=== PATIENT | male | born 1945 | race Caucasian/White ===

== ENCOUNTER → 2018-04-08 | Outpatient (CLI) | payer MEDICARE ==
[~2018-04-08] MED LIST: ASPI-555 PO; ESOM40CA PO; LISI-613 PO; OMEG1CAP6 PO; SIMV40TA5 PO
== END | disposition home or self-care (01) ==
LOC: SHCH 07:51
PROVIDERS: ATTEND Internal Medicine Cardiovascular Disease
DX: I71.4 Abdominal aortic aneurysm, without rupture (principal)
CPT/HCPCS: 93978

== ENCOUNTER → 2019-05-13 | Outpatient (CLI) | payer MEDICARE | END | disposition home or self-care (01) | LOC: SHCH 07:43 | PROVIDERS: ATTEND Internal Medicine Cardiovascular Disease | DX: I71.4 Abdominal aortic aneurysm, without rupture (principal) | CPT/HCPCS: 93978 ==

== ENCOUNTER → 2019-06-04 | Outpatient (CLI) | payer MEDICARE ==
[~2019-06-04] MED LIST changes: +IOHEXOL-350 50ML VIAL IV ONE
== END | disposition home or self-care (01) ==
LOC: RAH 09:38
PROVIDERS: ATTEND Internal Medicine Cardiovascular Disease
DX: K76.0 Fatty (change of) liver, not elsewhere classified (principal); N40.0 Benign prostatic hyperplasia without lower urinary tract symptoms
CPT/HCPCS: 75635; Q9967

== ENCOUNTER → 2020-05-31 | Outpatient (CLI) | payer MEDICARE ==
[~2020-05-31] MED LIST changes: -ASPI-555 PO; +ASPI-556 PO; -IOHEXOL-350 50ML VIAL IV ONE; +SIMV-46 PO; -SIMV40TA5 PO
== END | disposition home or self-care (01) ==
LOC: SHCH 07:43
PROVIDERS: ATTEND Internal Medicine Cardiovascular Disease
DX: I71.4 Abdominal aortic aneurysm, without rupture (principal)
CPT/HCPCS: 93978

== ENCOUNTER → 2020-05-31 | Outpatient (CLI) | payer OTHER | END | disposition home or self-care (01) | LOC: OIH 07:44 | PROVIDERS: ATTEND Internal Medicine Cardiovascular Disease | DX: Z13.6 Encounter for screening for cardiovascular disorders (principal) | CPT/HCPCS: 75571 ==

== ENCOUNTER → 2020-08-07 | Outpatient (CLI) | payer MEDICARE ==
[~2020-08-07] MED LIST changes: +REGADENOSON 0.4 MG/5 ML PF SYG IVP SCH
== END | disposition home or self-care (01) ==
LOC: SHCH 08:09
PROVIDERS: ATTEND Internal Medicine Cardiovascular Disease
DX: I35.8 Other nonrheumatic aortic valve disorders (principal); I25.10 Atherosclerotic heart disease of native coronary artery without angina pectoris; I10 Essential (primary) hypertension
CPT/HCPCS: 78452; 93017; 93306; 93356; 96374; A9500 ×2; J2785

== ENCOUNTER → 2022-01-23 | Outpatient (CLI) | payer MEDICARE ==
[~2022-01-23] MED LIST changes: -LISI-613 PO; +LISI20TA24 PO; -REGADENOSON 0.4 MG/5 ML PF SYG IVP SCH
== END | disposition home or self-care (01) ==
LOC: RAH 10:03
PROVIDERS: ATTEND Internal Medicine Cardiovascular Disease
DX: N40.0 Benign prostatic hyperplasia without lower urinary tract symptoms (principal); I71.4 Abdominal aortic aneurysm, without rupture; N26.1 Atrophy of kidney (terminal)
CPT/HCPCS: 74176

== ENCOUNTER → 2023-11-05 | Outpatient (CLI) | payer MEDICARE | END | disposition home or self-care (01) | LOC: SHCH 08:15 | PROVIDERS: ATTEND Internal Medicine Cardiovascular Disease | DX: I71.40 Abdominal aortic aneurysm, without rupture, unspecified (principal) | CPT/HCPCS: 93978 ==

== ENCOUNTER → 2024-09-07 | Outpatient (CLI) | payer MEDICARE ==
--- NOTE | 2024-09-07 14:46 | HMCIMG ---
CHEST 2VWS HISTORY: Cough COMPARISON: 04/25/2017 FINDINGS: Frontal and lateral projections of the chest were obtained. There is no acute pulmonary infiltrates or failure. The heart is not enlarged. No evidence of aortic calcification is seen. Degenerative changes are seen of the thoracolumbar spine. IMPRESSION: 1. No acute pulmonary infiltrates.
== END | disposition home or self-care (01) ==
LOC: OIH 12:19
PROVIDERS: ATTEND Family Medicine
DX: R05.9 Cough, unspecified (principal); M47.815 Spondylosis without myelopathy or radiculopathy, thoracolumbar region; F17.210 Nicotine dependence, cigarettes, uncomplicated
CPT/HCPCS: 71046

== ENCOUNTER → 2024-10-21 | Outpatient (CLI) | payer MEDICARE ==
[2024-10-21 12:14] LABS: POTASSIUM 4.6 mmol/L (3.5-5.1)
== END | disposition home or self-care (01) ==
LOC: LAB 08:32
PROVIDERS: ATTEND Nurse Practitioner Acute Care
DX: I71.40 Abdominal aortic aneurysm, without rupture, unspecified (principal)
CPT/HCPCS: 36415; 80048

== ENCOUNTER → 2024-10-25 | Outpatient (CLI) | payer MEDICARE ==
[~2024-10-25] MED LIST changes: +IOHEXOL 350 MG/ML 100ML INFUS..BTL IV ONE
--- NOTE | 2024-10-25 11:13 | HMCIMG ---
CT ANGIO ABD/PEL PRE AAA 3MM HISTORY: Aortic aneurysm COMPARISON: 01/23/2022 TECHNIQUE: CT angiography of the abdomen and pelvis was obtained using angiographic technique with maximum intensity projection reconstruction images. Patient was given 100 cc of Omnipaque through intravenous route. Oral contrast was not given. FINDINGS: No pleural effusion is seen bilaterally. There are mild interstitial fibrosis. There is no evidence of parenchymal disease or pulmonary nodule of the visualized lower lungs. Degenerative changes of the thoracolumbar spine are present. The heart is not enlarged. There is stable left adrenal adenoma measuring 17 mm. The liver, spleen, right adrenal gland and pancreas are unremarkable. There is no evidence of hydronephrosis bilaterally. No evidence of renal stone is seen. Fecal material is seen in the colon. There are normal size retroperitoneal and mesenteric lymph nodes. There is right renal atrophy. No ascites is seen. Atherosclerotic changes are present. Postop changes are seen of the lumbosacral spine causing artifacts limiting evaluation. There is diverticulosis. There is diffuse atherosclerotic disease. There is infrarenal abdominal aortic aneurysm measuring 3.5 x 3.2 cm proximally and 6 x 4.6 cm distally unchanged. Right common iliac artery measures 18 mm and left common iliac artery measures 19 mm. Aortobilateral iliac stent graft is seen without leakage. Minimal narrowing of the celiac artery and superior mesenteric arteries are noted at the origins. The celiac, superior mesenteric and bilateral renal arteries are grossly patent. The visualized portion of the iliac and femoral arterial systems are also grossly patent. Pelvic sidewalls are symmetric bilaterally. Bladder is poorly distended. Prostate gland is enlarged measuring 5.6 x 4.6 cm. IMPRESSION: 1. Abdominal aortic aneurysm repair changes with aortobilateral iliac stent placement. No leakage is seen. Enlarged prostate. Diverticulosis. No ascites. Extensive atherosclerosis with extensive vascular calcifications. CT was performed with one or more following dose reduction techniques: automated exposure control, adjustment of the mA and kv according to patient's size, or use of a iterative reconstruction technique.
== END | disposition home or self-care (01) ==
LOC: RAH 09:37
PROVIDERS: ATTEND Internal Medicine Cardiovascular Disease
DX: I71.43 Infrarenal abdominal aortic aneurysm, without rupture (principal); I71.40 Abdominal aortic aneurysm, without rupture, unspecified; I25.10 Atherosclerotic heart disease of native coronary artery without angina pectoris; K57.90 Diverticulosis of intestine, part unspecified, without perforation or abscess without bleeding; N26.1 Atrophy of kidney (terminal); I38 Endocarditis, valve unspecified; I70.0 Atherosclerosis of aorta; D35.02 Benign neoplasm of left adrenal gland; N40.0 Benign prostatic hyperplasia without lower urinary tract symptoms; M47.815 Spondylosis without myelopathy or radiculopathy, thoracolumbar region
CPT/HCPCS: 74174; Q9967

== ENCOUNTER → 2024-11-24 | Outpatient (CLI) | payer MEDICARE ==
[~2024-11-24] MED LIST changes: -IOHEXOL 350 MG/ML 100ML INFUS..BTL IV ONE
--- NOTE | 2024-11-26 09:30 | HMCSR ---
APPROVED REPORT EXAM: Two-dimensional and M-mode echocardiogram with Doppler and color Doppler. INDICATION ICD: I10 Essential (primary) Hypertension 2D Dimensions RVDd3.9 cmLVEF(%)55.6 (>50%)LVED Vol(simp.)152.0 mL IVSd1.2 (0.7-1.1cm)FS(%)29 %LVES Vol(simp.)71.0 mL LVDd5.0 (3.8-5.6cm)Ao Root(2D)3.7 (2.0-3.7cm)LVEF(%, simp.)53 % PWd1.2 (0.7-1.1cm)LVOT diam2.2 (1.8-2.4cm)LA ESV INDEX (BP)36.00 mL/m2 LVDs3.5 (2.5-4.0cm)IVC diam2.0 cm Aortic Valve AoV Vmax1.7 m/Barbara Peak GR11.8 mmHgLVOT Vmax1.0 m/s AoV VTI0.4 mAo Mean GR5.9 mmHgLVOT VTI0.23 m KAYLA (VMAX)2.3 cm2AVA (VTI) 2.3 cm2 Mitral Valve MV E Vmax71.5 cm/sDECEL Fjyp346 ms MV A Vmax80.5 cm/sP 1/2 T59 ms E/A ratio0.9MVA (PHT)3.7 cm2 MR Max PG141 mmHg TDI E/E' Medial8.9E/E' Lateral9.9 Pulmonary Valve PV Vmax0.9 m/sPV VTI0.22 mPV Mean GR2 mmHg PV Peak GR3.4 mmHg Tricuspid Valve TR Vmax2.6 m/sRAP (EST) 8 xwNnWQTV08.3 mmHg TR Peak GR26.3 mmHg Left Ventricle Left ventricular cavity size is normal. There is normal LV segmental wall motion. There is mild rosy ntric left ventricular hypertrophy. LVEF is 55%. No left ventricle thrombus noted on this study. Grad e 1 diastolic dysfunction Right Ventricle The right ventricle is normal size. The right ventricular systolic function is normal. Atria The left atrium is mildly dilated. The right atrium is mildly dilated. Aortic Valve Aortic valve is trileaflet. Aortic valve leaflets are sclerotic but open well. Trace aortic regurgita tion. There is no aortic valvular stenosis. Mitral Valve Mitral valve leaflets are mildly sclerotic but open well. Mitral regurgitation is mild. There is no m itral valve stenosis. Tricuspid Valve The tricuspid valve leaflets appear normal. There is mild tricuspid regurgitation. Right ventricular systolic pressure is estimated at 30-40 mmHg. Pulmonic Valve Pulmonic valve is not well visualized. Great Vessels The aortic root is normal in size. Descending aorta is not well visualized. IVC is dilated and collap ses >50% with inspiration. Pericardium No pericardial effusion. Conclusion Left ventricular cavity size is normal. There is mild concentric left ventricular hypertrophy. LVEF is 55%. Grade 1 diastolic dysfunction The right ventricle is normal size. The left atrium is mildly dilated. Aortic valve is trileaflet. Aortic valve leaflets are sclerotic but open well. Trace aortic regurgitation. Mitral valve leaflets are mildly sclerotic but open well. Mitral regurgitation is mild. There is mild tricuspid regurgitation. Right ventricular systolic pressure is estimated at 30-40 mmHg. The aortic root is normal in size. IVC is dilated and collapses >50% with inspiration. No pericardial effusion.
== END | disposition home or self-care (01) ==
LOC: SHCH 11:22
PROVIDERS: ATTEND Internal Medicine Cardiovascular Disease
DX: I08.3 Combined rheumatic disorders of mitral, aortic and tricuspid valves (principal); I11.9 Hypertensive heart disease without heart failure
CPT/HCPCS: 93306